=== PATIENT | female | born 1970 | race African-American/Black ===

== ENCOUNTER 2022-09-27 05:38 | Emergency (ER) | payer BC, OTHER ==
[2022-09-27 05:52] VITALS: RESP 18; TEMP 98.1; BMI 32.7
[2022-09-27] MEDS ORDERED: ACETAMINOPHEN 325 MG TABLET (FP) PO ONE (06:29)
[2022-09-27] MEDS ORDERED: ACETAMINOPHEN 325 MG TABLET (FP) ONE (06:37)
[2022-09-27] MEDS ORDERED: LIDOCAINE 5% TOPICAL PATCH ONE (07:04)
[2022-09-27] MEDS ORDERED: LIDOCAINE 5% TOPICAL PATCH TP ONE (07:10)
[2022-09-27] MEDS ORDERED: KETOROLAC TROMETHAMINE 30 MG/1 ML VIAL IM ONE (07:53)
[2022-09-27] MEDS ORDERED: KETOROLAC TROMETHAMINE 30 MG/1 ML VIAL ONE (08:00)
[2022-09-27 08:01] LABS: PH,URINE 5.5 (5.0-8.0); URINE APPEARANCE CLEAR; URINE BILIRUBIN NEGATIVE (NEGATIVE); URINE COLOR YELLOW; URINE GLUCOSE (UA) NEGATIVE (NEGATIVE); URINE KETONE NEGATIVE (NEGATIVE); URINE LEUK ESTERASE NEGATIVE (NEGATIVE); URINE NITRITE NEGATIVE (NEGATIVE); URINE PROTEIN NEGATIVE (NEGATIVE); URINE UROBILINOGEN 0.2 mg/dL (0.2-1.0)
[2022-09-27 09:32] VITALS: BP 120/79; PULSE 65
[2022-09-27] MEDS ORDERED: LIDOCAINE PATCH REMOVAL MC ONE (19:00)
== END 2022-09-27 09:32 | disposition home or self-care (01) ==
LOC: JER 05:38
PROC: 3E0233Z Introduction of Anti-inflammatory into Muscle, Percutaneous Approach (ICD-10-PCS; principal; 2022-09-27)
DX: M54.50 Low back pain, unspecified (principal)
CPT/HCPCS: 81003; 87086; 99284-25